=== PATIENT | male | born 1980 | race Hispanic/Latino ===

== ENCOUNTER 2023-10-06 16:50 | Outpatient (CLI) | payer BC | END 2023-10-06 16:51 | disposition home or self-care (01) | LOC: CSHRAD 16:50 | PROVIDERS: ATTEND Family Medicine | DX: M54.42 Lumbago with sciatica, left side (principal); M51.36 Other intervertebral disc degeneration, lumbar region; M51.37 Other intervertebral disc degeneration, lumbosacral region | CPT/HCPCS: 72100 ==

== ENCOUNTER 2024-02-25 08:02 | Outpatient (CLI) | payer BC | END 2024-02-25 08:03 | disposition home or self-care (01) | LOC: CSHWCC 08:02 | PROVIDERS: ATTEND Nurse Practitioner Family | DX: S51.812D Laceration without foreign body of left forearm, subsequent encounter (principal) ==

== ENCOUNTER 2024-03-03 08:41 | Outpatient (CLI) | payer BC | END 2024-03-03 08:42 | disposition home or self-care (01) | LOC: CSHWCC 08:41 | PROVIDERS: ATTEND Nurse Practitioner Family | DX: S51.812D Laceration without foreign body of left forearm, subsequent encounter (principal) | CPT/HCPCS: 11042 ==

== ENCOUNTER 2024-03-10 17:05 | Outpatient (CLI) | payer BC | END 2024-03-10 17:06 | disposition home or self-care (01) | LOC: CSHWCC 17:05 | PROVIDERS: ATTEND Nurse Practitioner Family | DX: S51.812D Laceration without foreign body of left forearm, subsequent encounter (principal) | CPT/HCPCS: 11042 ==